=== PATIENT | male | born 1985 | race Caucasian/White ===

== ENCOUNTER 2018-09-10 09:24 | Emergency (ER) | payer SELFPAY ==
[2018-09-10 09:34] VITALS: BMI 31.1
[2018-09-10] MEDS ORDERED: ASPIRIN 81 MG CHEWABLE TABLETS PO ONE (10:15)
[2018-09-10] MEDS ORDERED: ASPIRIN 81 MG CHEWABLE TABLETS ONE (10:16)
[2018-09-10 10:47] LABS: BASO % 0.7 % (0-2.0); EOS % 2.6 % (0-4.5); HEMATOCRIT 44.7 % (35.4-49); HEMOGLOBIN 15.9 GM/dL (11.7-16.9); MCH 31.9 pg (25.7-33.7); MCHC 35.5 g/dl (32.0-35.9); MEAN CELL VOLUME 89.9 fl (80-96); MEAN PLT VOLUME 9.2 fl (7.5-11.1); MONO % 9.7 % (3.8-10.2); PLATELET COUNT 231 K/MM3 (134-434); RBC 4.97 M/mm3 (4.00-5.60); RDW 12.2 % (11.9-15.9); WHITE BLOOD COUNT 10.2 K/mm3 (4.0-10.0)
--- NOTE | 2018-09-10 11:09 | PDOC ---
Documentation entered by Letty Solis SCRIBE, acting as scribe for Valentine Chu DO. Valentine Chu DO: This documentation has been prepared by the Will marshall Mackenzie, SCRIBE, under my direction and personally reviewed by me in its entirety. I confirm that the documentation accurately reflects all work , treatment, procedures, and medical decision making performed by me. 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 Patient states the pain is a sharp pressure in the center of his chest radiating towards the middle of his back and worsened by laying flat. Patient denies any leg swelling or pain. The patient denies shortness of breath, headache and dizziness. Denies fever, chills, nausea, vomiting, diarrhea and constipation. Denies dysuria, frequency, urgency and hematuria. Allergies: NKA Family history: Paternal grandfather heart disease in his 50s Past surgical history: Ankle surgery several years ago Social history: Quit smoking 6 weeks ago, before that smoked a cigarette a day 09/10/18 10:51 Past History - Past Medical History Allergies/Adverse Reactions: Allergies Allergy/AdvReac Type Severity Reaction Status Date / Time No Known Allergies Allergy Verified 09/10/18 09:34 Home Medications: Ambulatory Orders Ibuprofen [Motrin] 800 mg PO TID #20 tablet 07/20/13 Levofloxacin [Levaquin] 750 mg PO ONCE #7 tablet 07/20/13 No Home Medications 0 dose .ROUTE UTDICT 07/20/13 COPD: No - Immunization History Immunization Up to Date: Yes - Suicide/Smoking/Psychosocial Hx Smoking History: Never smoked Have you smoked in the past 12 months: Yes Number of Cigarettes Smoked Daily: 1 'Breaking Loose' booklet given: 02/01/13 Hx Alcohol Use: (occasional) Substance Use Type: None Review of Systems - Review of Systems Able to Perform ROS?: Yes Comments:: GENERAL/CONSTITUTIONAL: No fever or chills. No weakness. HEAD, EYES, EARS, NOSE AND THROAT: No change in vision. No ear pain or discharge. No sore throat. GASTROINTESTINAL: No nausea, vomiting, diarrhea or constipation. GENITOURINARY: No dysuria, frequency, or change in urination. CARDIOVASCULAR: (+)Chest pain. No shortness of breath. RESPIRATORY: No cough, wheezing, or hemoptysis. MUSCULOSKELETAL: (+)Associated back pain. No joint or muscle swelling or pain. No neck pain. SKIN: No rash NEUROLOGIC: No headache, vertigo, loss of consciousness, or change in strength/ sensation. ENDOCRINE: No increased thirst. No abnormal weight change. HEMATOLOGIC/LYMPHATIC: No anemia, easy bleeding, or history of blood clots. ALLERGIC/IMMUNOLOGIC: No hives or skin allergy. 09/10/18 10:55 Is the patient limited Danish proficient: No *Physical Exam - Vital Signs Last Vital Signs Temp Pulse Resp BP Pulse Ox 97.6 F 72 18 144/93 99 09/10/18 09:32 09/10/18 09:32 09/10/18 09:32 09/10/18 09:32 09/10/18 09:32 - Physical Exam Comments: Constitutional: Awake, alert, oriented. No acute distress. Head: Normocephalic. Atraumatic Eyes: PERRL. EOMI. Conjunctivae are not pale. ENT: Mucous membranes are moist and intact. Posterior pharynx without exudates or erythema. Uvula midline. Neck: Supple. Full ROM. No lymphadenopathy. Cardiovascular: (+)No reproducible anterior chest wall pain. Regular rate. Regular rhythm. S1, S2 regular. Distal pulses are 2+ and symmetric. Pulmonary/Chest: No evidence of respiratory distress. Clear to auscultation bilaterally No wheezing, rales or rhonchi. Abdominal: Soft and non-distended. There is no tenderness. No rebound, guarding or rigidity. No organomegaly. No palpable masses. Good bowel sounds. Back: No CVA tenderness. Musculoskeletal: No edema. No cyanosis. No clubbing. Full range of motion in all extremities. Nocalf tenderness. Radial/pedal pulses are intact and 2+ bilaterally Skin: Skin is warm and dry. No petechiae. No purpura. Neurological: Alert and oriented to person, place, and time. Cranial nerves II -XII are grossly intact. Normal speech. Strength is grossly symmetric. No sensory deficits. Psychiatric: Good eye contact. Normal interaction, affect and behavior. 09/10/18 10:52 Heart Score/ECG Review - ECG Intrepretation Comment:: 09/10/18 11:09 sinus at 76, nl axis, nl interval, t wave inversions iii which are nonspecific, no acute st changes ED Treatment Course - LABORATORY CBC & Chemistry Diagram: 09/10/18 10:34 09/10/18 10:34 - RADIOLOGY Radiology Studies Ordered: Category Date Time Status CHEST PA & LAT [RAD] Stat Radiology 09/10/18 10:14 Completed - Medications Given in the ED: ED Medications Discontinued Medications Generic Name Dose Route Start Last Admin Trade Name Lety PRN Reason Stop Dose Admin Aspirin 324 mg 09/10/18 10:15 09/10/18 10:18 Asa - PO 09/10/18 10:16 324 mg ONCE ONE Administration Medical Decision Making - Medical Decision Making 09/10/18 11:07 a/p: 33yo male with no pmhx presents with midsternal cp -no radiation of the pain -no prior episodes of similar -no cough, sob, nausea, diaphoresis, no rash -no recent illness -no heavy lifting or reproducible chest wall pain -pt denies abd pain, no vomiting or diarrhea -no gerd symptoms -pt states pain woke him up from sleep and initially he felt sob, but denies sob or pleuritic cp at this time -PERC neg -fam hx of heart disease in paternal grandfather, dm, ca, htn -will send labs, trop, ekg, cxr -will give asa 09/10/18 11:09 cxr clear no acute changes on ekg 09/10/18 11:20 re-eval: no cp at this time discussed lab results will send for RUQ ultrasound given elevated lft pt does admit to etoh use yesterday will repeat trop at 3 hr luis will continue to monitor discussed risk of etoh use and elevated lft 09/10/18 14:54 pt denies cp or abd pain. 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 Please stop drinking alcohol. Please have your labs repeated including your liver function tests in 1 week with your PMD. Please return to the ED with any further concerns or complaints. - Post Discharge Activity - Attestations Physician Attestion: 09/10/18 15:04 I, Dr. Valentine Chu, DO, attest that this document has been prepared under my direction and personally reviewed by me in its entirety. I further attest, that it accurately reflects all work, treatment, procedures and medical decision -making performed by me.
[2018-09-10 11:12] LABS: ALBUMIN 4.1 g/dl (3.4-5.0); BILIRUBIN,TOTAL 1.3 mg/dL (0.2-1); BLOOD UREA NITROGEN 17.2 mg/dL (7-18); CALCIUM 9.4 mg/dL (8.5-10.1); CREATININE 0.9 mg/dL (0.55-1.3); MAGNESIUM 2.3 mg/dL (1.8-2.4); POTASSIUM 3.7 mmol/L (3.5-5.1); TOT PROT 7.6 g/dl (6.4-8.2)
[2018-09-10 13:04] VITALS: BP 110/67; TEMP 97.8
[2018-09-10 15:15] VITALS: PULSE 75
--- NOTE | 2018-09-11 10:13 | EKG ---
Test Reason : Blood Pressure : / mmHG Vent. Rate : 076 BPM Atrial Rate : 076 BPM P-R Int : 156 ms QRS Dur : 078 ms QT Int : 382 ms P-R-T Axes : 050 -03 020 degrees QTc Int : 429 ms NORMAL SINUS RHYTHM POSSIBLE LEFT ATRIAL ENLARGEMENT LEFT VENTRICULAR HYPERTROPHY ABNORMAL ECG WHEN COMPARED WITH ECG OF 20-JUL-2013 00:16, NO SIGNIFICANT CHANGE WAS FOUND Confirmed by ARSH HARRIS MD ([id number]) on 09/11/2018 10:13:37 AM Referred By: Confirmed By:ARSH HARRIS MD
== END 2018-09-10 15:17 | disposition home or self-care (01) ==
LOC: JER 09:24
DX: R07.9 Chest pain, unspecified (principal)
CPT/HCPCS: 36415; 71046-TC-FY; 76705-TC; 80053; 82550; 82553; 83735; 84484; 85025; 93005; 93010; 99283-25

== ENCOUNTER 2021-08-02 09:23 | Emergency (ER) | payer OTHER ==
[2021-08-02 09:28] VITALS: BP 119/71; PULSE 63; TEMP 97.8; BMI 35.9
[2021-08-02] MEDS ORDERED: IBUPROFEN 600 MG TABLET (FP) PO ONE ×2 (09:41→09:51)
[2021-08-02] MEDS ORDERED: ACETAMINOPHEN 325 MG TABLET (FP) PO ONE (09:41)
[2021-08-02] MEDS ORDERED: SULFAMETHOXAZOLE/TRIMETHOPRIM 800MG/160MG D.S. TABLET PO ONE (09:42)
[2021-08-02] MEDS ORDERED: ACETAMINOPHEN 500 MG TABLET (FP) ONE (09:52)
[2021-08-02] MEDS ORDERED: SULFAMETHOXAZOLE/TRIMETHOPRIM 800MG/160MG D.S. TABLET ONE (09:52)
== END 2021-08-02 11:10 | disposition home or self-care (01) ==
LOC: JERFT 09:23
DX: L08.9 Local infection of the skin and subcutaneous tissue, unspecified (principal)
CPT/HCPCS: 99283-25

== ENCOUNTER 2021-10-04 17:03 | Emergency (ER) | payer OTHER ==
[2021-10-04 17:06] VITALS: BP 124/88; PULSE 76; RESP 18; TEMP 97.9; BMI 35.2
[2021-10-04] MEDS ORDERED: IBUPROFEN 600 MG TABLET (FP) PO ONE ×2 (18:30→18:38)
== END 2021-10-04 19:23 | disposition home or self-care (01) ==
LOC: JERFT 17:03
DX: S93.402A Sprain of unspecified ligament of left ankle, initial encounter (principal); X50.9XXA Other and unspecified overexertion or strenuous movements or postures, initial encounter
CPT/HCPCS: 73610-TC-LT-FY; 73630-TC-LT; 99283-25

== ENCOUNTER 2023-03-25 17:43 | Emergency (ER) | payer OTHER ==
[2023-03-25 17:52] VITALS: BP 120/72; PULSE 95; RESP 18; TEMP 97.9; BMI 31.1
[2023-03-25] MEDS ORDERED: IBUPROFEN 600 MG TABLET (FP) PO ONE (18:10)
[2023-03-25] MEDS: IBUPROFEN 600 MG TABLET (FP) PO ONE (18:16)
== END 2023-03-25 19:57 | disposition home or self-care (01) ==
LOC: JERFT 17:43 → JER 17:43 → JERFT 19:57
DX: S82.401A Unspecified fracture of shaft of right fibula, initial encounter for closed fracture (principal); M25.571 Pain in right ankle and joints of right foot; X50.1XXA Overexertion from prolonged static or awkward postures, initial encounter
CPT/HCPCS: 73610-TC-RT-FY; 73630-TC-RT-FY; 99283-25

== ENCOUNTER 2023-05-21 13:08 | Emergency (ER) | payer OTHER ==
[2023-05-21 13:18] VITALS: TEMP 98.1; BMI 32.5
[2023-05-21 13:49] LABS: EPI CELLS 14 /uL (0-25.1); HYALINE CASTS 2 /uL (0-3.1); PH,URINE 6.5 (5.0-8.0); URINE APPEARANCE CLEAR; URINE BACTERIA 36 /uL (0-1359); URINE BILIRUBIN 1+ (NEGATIVE); URINE COLOR ORANGE; URINE GLUCOSE (UA) NEGATIVE (NEGATIVE); URINE KETONE TRACE (NEGATIVE); URINE LEUK ESTERASE 1+ (NEGATIVE); URINE NITRITE NEGATIVE (NEGATIVE); URINE PROTEIN 1+ (NEGATIVE); URINE RBC 21 /uL (0-23.9); URINE WBC 79 /uL (0-25.8)
[2023-05-21] MEDS: SODIUM CHLORIDE 1,000 ML IV STA (14:05)
[2023-05-21] MEDS: ACETAMINOPHEN 1000 MG/100 ML BAG IVPB ONE (14:05)
[2023-05-21 14:11] LABS: BASO % 0.8 % (0-2.0); EOS % 0.9 % (0-4.5); HEMATOCRIT 44.3 % (35.4-49); HEMOGLOBIN 15.5 GM/dL (11.7-16.9); LYMPH % 15.7 % (8-40); MCH 31.1 pg (25.7-33.7); MCHC 34.9 g/dl (32.0-35.9); MEAN PLT VOLUME 8.5 fl (7.5-11.1); MONO % 10.5 % (3.8-10.2); NEUT % 72.1 % (42.8-82.8); PLATELET COUNT 278 10^3/uL (134-434); RBC 4.98 M/mm3 (4.00-5.60); RDW 12.5 % (11.9-15.9); WHITE BLOOD COUNT 16.4 K/mm3 (4.0-10.0)
[2023-05-21 14:38] LABS: POTASSIUM 3.9 mmol/L (3.5-5.1)
[2023-05-21 14:40] LABS: CALCIUM 9.7 mg/dL (8.5-10.1)
[2023-05-21 14:41] LABS: ALBUMIN 3.7 g/dl (3.4-5.0); BLOOD UREA NITROGEN 10.8 mg/dL (7-18)
[2023-05-21 14:44] LABS: CREATININE 0.8 mg/dL (0.55-1.3)
[2023-05-21 14:45] LABS: BILIRUBIN,TOTAL 1.6 mg/dL (0.2-1); TOT PROT 7.8 g/dl (6.4-8.2)
[2023-05-21] MEDS ORDERED: ACETAMINOPHEN 500 MG TABLET (FP) ONE (15:59)
[2023-05-21] MEDS: ACETAMINOPHEN 500 MG TABLET (FP) PO ONE (16:03)
[2023-05-21 16:41] VITALS: BP 125/71; PULSE 81; RESP 18
== END 2023-05-21 17:13 | disposition home or self-care (01) ==
LOC: JER 13:08
DX: N43.3 Hydrocele, unspecified (principal); N30.90 Cystitis, unspecified without hematuria; N50.811 Right testicular pain
CPT/HCPCS: 36415; 74177-TC; 76870-TC; 80053; 81003; 85025; 87086; 99285-25

== ENCOUNTER 2023-05-28 20:26 | Emergency (ER) | payer OTHER ==
[2023-05-28 20:31] VITALS: BP 136/82; PULSE 100; RESP 16; TEMP 98.4; BMI 31.1
[2023-05-28] MEDS ORDERED: ACETAMINOPHEN 500 MG TABLET (FP) ONE (21:27)
[2023-05-28] MEDS ORDERED: IBUPROFEN 600 MG TABLET (FP) PO ONE (21:27)
[2023-05-28] MEDS: IBUPROFEN 600 MG TABLET (FP) PO ONE (21:29)
[2023-05-28] MEDS: ACETAMINOPHEN 500 MG TABLET (FP) PO ONE (21:30)
== END 2023-05-28 22:06 | disposition home or self-care (01) ==
LOC: JERFT 20:26
DX: S80.911A Unspecified superficial injury of right knee, initial encounter (principal); M25.561 Pain in right knee; M25.461 Effusion, right knee; W18.39XA Other fall on same level, initial encounter; Y04.0XXA Assault by unarmed brawl or fight, initial encounter
CPT/HCPCS: 73562-TC-RT-FY; 99283-25